=== PATIENT | male | born 1965 | race Two or more races ===

== ENCOUNTER 2023-02-12 19:55 | Inpatient (IN) | payer MEDICAID, OTHER ==
[~2023-02-12] VITALS: Ht 177.8 cm; Wt 89.2 kg
[2023-02-12] MEDS ORDERED: LORazepam 2MG/ML-1ML VIAL IV ONE ×2 (20:15→20:30)
[2023-02-12] MEDS ORDERED: SODIUM CHLORIDE 0.9% 1,000 ML IV ONE (20:30)
[2023-02-12 20:40] VITALS: PULSE 79; RESP 20; O2SAT 95
[2023-02-12 21:00] LABS: Basophils # (auto) 0 10 ^3/uL (0-0.2); Basophils % (auto) 0.6 % (0.0-2.0); Eosinophils # (auto) 0 10 ^3/uL (0-0.8); Eosinophils % (auto) 0.1 % (0.0-7.0); Hematocrit 40.7 % (41.0-53.0); Hemoglobin 13.8 g/dL (13.5-17.5); Lymphocytes # (auto) 0.1 10 ^3/uL (0.4-5.4); Lymphocytes % (auto) 1.7 % (10.0-50.0); Mean Corpuscular Hemoglobin 31.8 pg (28.0-32.0); Mean Corpuscular Volume 93.6 fL (80.0-100.0); Monocytes # (auto) 0.4 10 ^3/uL (0-1.3); Monocytes % (auto) 6.6 % (0.0-12.0); Neutrophils # (auto) 5.1 10 ^3/uL (1.6-8.6); Red Blood Cells 4.35 10^6/uL (4.5-5.90); Red Cell Distribution Width 15.6 % (11.8-14.3); White Blood Cell 5.6 10^3/uL (4.4-10.8)
[2023-02-12 21:25] LABS: Albumin 3.2 g/dL (3.4-5.0); Anion Gap 10 (5-15); Blood Alcohol < 3.0 mg/dL (<10); Blood Urea Nitrogen 12 mg/dL (7-18); Calcium 8.2 mg/dL (8.5-10.1); Carbon Dioxide 25 mmol/L (21-32); Chloride 103 mmol/L (98-107); Glucose 119 mg/dL (74-106); Potassium 3.2 mmol/L (3.5-5.1); Sodium 138 mmol/L (136-145)
[2023-02-12 21:29] LABS: Alanine Aminotransferase 323 U/L (16-61); Alkaline Phosphatase 90 U/L (45-117); Aspartate Aminotransferase 541 U/L (15-37); BUN/Creatinine Ratio 13.3 (10.0-20.0); GFR African American 112 mL/min; GFR Non-African American 93 mL/min; Total Protein 6.6 g/dL (6.4-8.2)
[2023-02-12] MEDS ORDERED: FOLIC ACID 1 MG, MULTIPLE VITAMIN 10 ML, MAGNESIUM SULF SDV 50% 8 MEQ, THIAMINE INJ 100... INJ SCH ×5 (23:50)
[2023-02-13] MEDS: LORazepam 2MG/ML-1ML VIAL IV PRN ×4 (00:08→21:40)
[2023-02-13] MEDS ORDERED: MVI in SODIUM CHLORIDE 0.9% 1,010 ML ONE (00:09)
[2023-02-13] MEDS ORDERED: THIAMINE 100mg/ml INJ (200mg/2ml VIAL) ONE (00:10)
[2023-02-13] MEDS ORDERED: THIAMINE 100mg/ml INJ (200mg/2ml VIAL) IV ONE (00:30)
[2023-02-13] MEDS ORDERED: ONDANSETRON HCL 4 MG/2 ML VIAL IV PRN (03:15)
[2023-02-13] MEDS ORDERED: TEMAZEPAM 15 MG CAP PO PRN (03:15)
[2023-02-13] MEDS ORDERED: NITROGLYCERIN 0.4 MG SL TAB SL PRN (03:15)
[2023-02-13] MEDS ORDERED: MORPHINE SULFATE INJ 2 MG/ml SYRG IV PRN (03:15)
[2023-02-13 04:24] LABS: Alcohol, Urine < 3.0 mg/dL (0-10); Amphetamine Screen, Urine NEGATIVE (NEGATIVE); Barbiturate Scree,Urine NEGATIVE (NEGATIVE); Benzodiazephine Screen, Urine NEGATIVE (NEGATIVE); Cannabinoid Screen, Urine NEGATIVE (NEGATIVE); Cocaine Screen, Urine NEGATIVE (NEGATIVE); Opiate Scree,Urine NEGATIVE (NEGATIVE); Phencyclidine Screen, Urine NEGATIVE (NEGATIVE)
[2023-02-13 06:00] VITALS: PULSE 79; RESP 17; O2SAT 93
[2023-02-13] MEDS ORDERED: POTASSIUM CHL 20 Meq TABLET PO ONE ×2 (06:15→13:45)
[2023-02-13 08:00] VITALS: PULSE 103; RESP 19; O2SAT 96
[2023-02-13] MEDS: LISINOPRIL 10 MG TAB PO SCH (08:07)
[2023-02-13] MEDS: chlordiazePOXIDE HCL 25 MG CAP PO PRN ×3 (08:07→23:56)
[2023-02-13] MEDS: SODIUM CHLORIDE 0.9% 1,000 ML IV SCH (16:00)
[2023-02-13 16:05] VITALS: BP 157/102; PULSE 89; RESP 16; TEMP 98.9; O2SAT 95
[2023-02-13 17:50] VITALS: BP 149/101; PULSE 98
[2023-02-13 20:00] VITALS: PULSE 91
[2023-02-13 21:40] VITALS: BP 154/88; PULSE 84; RESP 17; TEMP 98.1; O2SAT 99
[2023-02-14] MEDS ORDERED: FOLIC ACID 1 MG, MULTIPLE VITAMIN 10 ML, MAGNESIUM SULF SDV 50% 8 MEQ, THIAMINE INJ 100... INJ SCH ×5
[2023-02-14] MEDS: SODIUM CHLORIDE 0.9% 1,000 ML IV SCH ×2 (01:15→11:15)
[2023-02-14] MEDS: LORazepam 2MG/ML-1ML VIAL IV PRN (04:31)
[2023-02-14 05:00] VITALS: BP 152/96; PULSE 89; RESP 20; TEMP 97.6; O2SAT 98
[2023-02-14 06:59] LABS: Potassium 3.2 mmol/L (3.5-5.1)
[2023-02-14 07:13] LABS: Albumin 3.1 g/dL (3.4-5.0); BUN/Creatinine Ratio 9.3 (10.0-20.0); Bilirubin, Total 2.7 mg/dL (0.2-1.0); Calcium 8.3 mg/dL (8.5-10.1); Total Protein 6.4 g/dL (6.4-8.2)
[2023-02-14 07:30] VITALS: PULSE 91; O2SAT 97
[2023-02-14] MEDS ORDERED: POTASSIUM CHL 20 Meq TABLET PO ONE (07:30)
[2023-02-14 07:40] LABS: Basophils # (auto) 0 10 ^3/uL (0-0.2); Basophils % (auto) 0.7 % (0.0-2.0); Eosinophils # (auto) 0 10 ^3/uL (0-0.8); Eosinophils % (auto) 1.1 % (0.0-7.0); Hematocrit 40.4 % (41.0-53.0); Hemoglobin 13.6 g/dL (13.5-17.5); Lymphocytes # (auto) 0.7 10 ^3/uL (0.4-5.4); Lymphocytes % (auto) 21.7 % (10.0-50.0); Mean Corpuscular Hemoglobin 32.1 pg (28.0-32.0); Mean Corpuscular Hgb Conc. 33.8 g/dL (32.0-36.0); Monocytes # (auto) 0.5 10 ^3/uL (0-1.3); Neutrophils # (auto) 1.9 10 ^3/uL (1.6-8.6); Neutrophils % (auto) 61.5 % (37.0-80.0); Nucleated Red Blood Cells % 0.2 %; Red Blood Cells 4.25 10^6/uL (4.5-5.90); Red Cell Distribution Width 15.4 % (11.8-14.3); White Blood Cell 3.1 10^3/uL (4.4-10.8)
[2023-02-14] MEDS ORDERED: amLODIPine BESYLATE 5 MG TAB PO SCH ×2 (07:46→10:00)
[2023-02-14 09:00] VITALS: BP 157/101; PULSE 90; RESP 21; TEMP 97.8; O2SAT 97
[2023-02-14] MEDS ORDERED: AML5T PO ×3 (09:56→12:59)
[2023-02-14] MEDS ORDERED: LISI10TA34 PO (09:56)
[2023-02-14] MEDS: LISINOPRIL 10 MG TAB PO SCH (11:23)
[2023-02-14] MEDS ORDERED: hydrALAZINE HCL 20 MG/ML VL IV ONE (13:00)
[2023-02-14 14:00] VITALS: BP 126/89; PULSE 100; RESP 20; TEMP 98; O2SAT 98
[2023-02-14 18:05] VITALS: BP 128/75; PULSE 80; RESP 17; TEMP 98; O2SAT 98
[2023-02-14] MEDS: chlordiazePOXIDE HCL 25 MG CAP PO PRN (18:47)
== END 2023-02-14 18:50 | disposition home or self-care (01) | DRG 775 ==
LOC: EDBD 19:55 → ER 19:59 → TELE 02-13 03:10 → TELE-WESTW 02-13 14:00
PROVIDERS: ADMIT Internal Medicine Pulmonary Disease
DX: F10.231 Alcohol dependence with withdrawal delirium (principal); E78.5 Hyperlipidemia, unspecified; R74.01 Elevation of levels of liver transaminase levels; I10 Essential (primary) hypertension; Z82.49 Family history of ischemic heart disease and other diseases of the circulatory system
CPT/HCPCS: 36415; 80053; 80307; 80320; 85025; 93005; 96361; 96365; 96375; G0378

== ENCOUNTER 2023-06-12 14:00 | Inpatient (IN) | payer MEDICAID ==
[~2023-06-12] VITALS: Ht 177.8 cm; Wt 80.3 kg
[~2023-06-12 14:00] MED LIST: AML5T PO; LISI10TA34 PO
[2023-06-12] MEDS ORDERED: LORazepam 2MG/ML-1ML VIAL IV ONE (17:30)
[2023-06-12] MEDS ORDERED: SODIUM CHLORIDE 0.9% 1,000 ML IV ONE (17:30)
[2023-06-12 18:09] LABS: Basophils # (auto) 0 10 ^3/uL (0-0.2); Basophils % (auto) 0.1 % (0.0-2.0); Eosinophils # (auto) 0 10 ^3/uL (0-0.8); Hematocrit 47.5 % (41.0-53.0); Hemoglobin 15.9 g/dL (13.5-17.5); Lymphocytes # (auto) 0.2 10 ^3/uL (0.4-5.4); Lymphocytes % (auto) 3.4 % (10.0-50.0); Mean Corpuscular Hemoglobin 31.1 pg (28.0-32.0); Mean Corpuscular Hgb Conc. 33.5 g/dL (32.0-36.0); Mean Corpuscular Volume 92.8 fL (80.0-100.0); Monocytes # (auto) 0.9 10 ^3/uL (0-1.3); Monocytes % (auto) 14.1 % (0.0-12.0); Neutrophils # (auto) 5.5 10 ^3/uL (1.6-8.6); Neutrophils % (auto) 82.4 % (37.0-80.0); Nucleated Red Blood Cells % 0.1 %; Red Blood Cells 5.12 10^6/uL (4.5-5.90); Red Cell Distribution Width 14.5 % (11.8-14.3); White Blood Cell 6.7 10^3/uL (4.4-10.8)
[2023-06-12 18:28] LABS: Alanine Aminotransferase 279 U/L (7-40); Alkaline Phosphatase 132 U/L (46-116); Anion Gap 18 (5-15); Aspartate Aminotransferase 419 U/L (13-40); BUN/Creatinine Ratio 15.1 (10.0-20.0); Bilirubin, Total 4.4 mg/dL (0.2-1.0); Blood Alcohol < 3.0 mg/dL (<10); Blood Urea Nitrogen 16 mg/dL (9-23); Calcium 9.8 mg/dL (8.7-10.4); Carbon Dioxide 23 mmol/L (20-30); Chloride 89 mmol/L (98-107); Glucose 166 mg/dL (74-106); Potassium 4.3 mmol/L (3.5-5.1); Sodium 130 mmol/L (136-145); Total Protein 8.3 g/dL (5.7-8.2)
[2023-06-12] MEDS ORDERED: CHL10C PO (20:51)
[2023-06-12] MEDS ORDERED: hydrALAZINE HCL 20 MG/ML VL IV PRN (21:15)
[2023-06-12] MEDS ORDERED: LORazepam 2MG/ML-1ML VIAL IV PRN (21:15)
[2023-06-12] MEDS ORDERED: ONDANSETRON HCL 4 MG/2 ML VIAL IV PRN (21:15)
[2023-06-12] MEDS ORDERED: DOCUSATE SOD 100 MG CAP PO PRN (21:15)
[2023-06-12] MEDS ORDERED: IBUPROFEN 600 MG TAB PO PRN (21:15)
[2023-06-12] MEDS ORDERED: MORPHINE SULFATE INJ 2 MG/ml SYRG IV PRN (23:00)
[2023-06-12] MEDS ORDERED: NITROGLYCERIN 0.4 MG SL TAB SL PRN (23:00)
[2023-06-13] VITALS (7 sets, daily range): BP systolic 94–121; BP diastolic 44–74; PULSE 76–93; RESP 18–19; TEMP 98.3–98.5; O2SAT 97–98
[2023-06-13] MEDS: SODIUM CHLORIDE 0.9% 1,000 ML IV SCH ×2 (02:23→13:55)
[2023-06-13] MEDS ORDERED: LORazepam 0.5 MG TAB PO PRN (06:00)
[2023-06-13 06:20] LABS: Basophils # (auto) 0 10 ^3/uL (0-0.2); Basophils % (auto) 0.1 % (0.0-2.0); Eosinophils # (auto) 0 10 ^3/uL (0-0.8); Hematocrit 45.3 % (41.0-53.0); Hemoglobin 15.2 g/dL (13.5-17.5); Lymphocytes # (auto) 0.7 10 ^3/uL (0.4-5.4); Lymphocytes % (auto) 8.3 % (10.0-50.0); Mean Corpuscular Hemoglobin 31.3 pg (28.0-32.0); Mean Corpuscular Hgb Conc. 33.6 g/dL (32.0-36.0); Mean Corpuscular Volume 93.2 fL (80.0-100.0); Monocytes # (auto) 1.1 10 ^3/uL (0-1.3); Neutrophils # (auto) 6.1 10 ^3/uL (1.6-8.6); Neutrophils % (auto) 77.6 % (37.0-80.0); Nucleated Red Blood Cells % 0.2 %; Red Blood Cells 4.86 10^6/uL (4.5-5.90); Red Cell Distribution Width 14.9 % (11.8-14.3); White Blood Cell 7.9 10^3/uL (4.4-10.8)
[2023-06-13 06:32] LABS: Alanine Aminotransferase 262 U/L (7-40); Albumin 4.7 g/dL (3.2-4.8); Alkaline Phosphatase 129 U/L (46-116); Anion Gap 16 (5-15); Aspartate Aminotransferase 356 U/L (13-40); BUN/Creatinine Ratio 19.4 (10.0-20.0); Calcium 9.5 mg/dL (8.5-10.1); Carbon Dioxide 24 mmol/L (20-30); Chloride 93 mmol/L (98-107); Glucose 119 mg/dL (74-106); Potassium 3.7 mmol/L (3.5-5.1); Sodium 133 mmol/L (136-145)
[2023-06-13 06:33] LABS: Bilirubin, Total 4.1 mg/dL (0.2-1.0); Total Protein 7.8 g/dL (5.7-8.2)
[2023-06-13 06:49] LABS: Blood Urea Nitrogen 27 mg/dL (9-23)
[2023-06-13] MEDS: LORazepam 2MG/ML-1ML VIAL IV PRN ×2 (08:59→11:43)
[2023-06-13] MEDS ORDERED: FOLIC ACID 1 MG, MULTIPLE VITAMIN 10 ML, MAGNESIUM SULF SDV 50% 8 MEQ, THIAMINE INJ 100... INJ SCH ×5 (12:00)
[2023-06-13] MEDS: chlordiazePOXIDE HCL 25 MG CAP PO SCH (18:21)
[2023-06-14] MEDS: chlordiazePOXIDE HCL 25 MG CAP PO SCH ×3 (00:19→11:24)
[2023-06-14 05:00] VITALS: BP 148/93; PULSE 81; RESP 21; TEMP 98.5; O2SAT 97
[2023-06-14] MEDS: SODIUM CHLORIDE 0.9% 1,000 ML IV SCH ×2 (06:35→23:15)
[2023-06-14] MEDS: amLODIPine BESYLATE 5 MG TAB PO SCH (08:09)
[2023-06-14] MEDS: LORazepam 2MG/ML-1ML VIAL IV PRN ×2 (08:09→11:27)
[2023-06-14 08:30] VITALS: BP 131/83; PULSE 80; PULSE 90; RESP 18; RESP 20; TEMP 98.7; O2SAT 97; O2SAT 99
[2023-06-14] MEDS ORDERED: THIAMINE HCL 100 MG TAB PO ONE (11:15)
[2023-06-14 12:30] VITALS: BP 117/73; PULSE 85; RESP 18; TEMP 98.3; O2SAT 94
[2023-06-14 16:31] VITALS: BP 115/59; PULSE 80; RESP 18; TEMP 98.7; O2SAT 94
[2023-06-14] MEDS: FOLIC ACID 1 MG, MULTIPLE VITAMIN 10 ML, MAGNESIUM SULF SDV 50% 8 MEQ, THIAMINE INJ 100... INJ SCH ×5 (17:54)
[2023-06-14 20:00] VITALS: PULSE 70; PULSE 90; RESP 20; O2SAT 97
[2023-06-14 22:00] VITALS: BP 116/81; PULSE 93; RESP 18; TEMP 97.6; O2SAT 97
[2023-06-15] VITALS (7 sets, daily range): BP systolic 137–144; BP diastolic 80–89; PULSE 70–96; RESP 18–20; TEMP 97.6–98.8; O2SAT 97–98
[2023-06-15] MEDS: chlordiazePOXIDE HCL 25 MG CAP PO SCH ×4 (06:14→18:06)
[2023-06-15 06:22] LABS: Alanine Aminotransferase 249 U/L (7-40); Albumin 3.6 g/dL (3.2-4.8); Alkaline Phosphatase 101 U/L (46-116); Anion Gap 8 (5-15); Aspartate Aminotransferase 328 U/L (13-40); BUN/Creatinine Ratio 10.7 (10.0-20.0); Bilirubin, Total 1.7 mg/dL (0.2-1.0); Carbon Dioxide 24 mmol/L (20-30); Chloride 106 mmol/L (98-107); Glucose 73 mg/dL (74-106); Potassium 3.5 mmol/L (3.5-5.1); Sodium 138 mmol/L (136-145)
[2023-06-15 06:23] LABS: Total Protein 6.1 g/dL (5.7-8.2)
[2023-06-15 06:34] LABS: Blood Urea Nitrogen 8 mg/dL (9-23)
[2023-06-15 09:37] LABS: Hepatitis B Surface Antigen Negative (Negative)
[2023-06-15 09:59] LABS: Hepatitis C Antibody Negative (Negative)
[2023-06-15 10:00] LABS: Hepatitis B Core Total AB Negative (Negative)
[2023-06-15] MEDS: THIAMINE HCL 100 MG TAB PO SCH (10:10)
[2023-06-15] MEDS: amLODIPine BESYLATE 5 MG TAB PO SCH (10:25)
[2023-06-15 11:31] LABS: Hepatitis A Total Antibody Positive (Negative)
[2023-06-15 11:32] LABS: Hepatitis B Surface Antibody Negative (Negative); Hepatitis B Surface Antigen Negative (Negative); Hepatitis C Antibody Negative (Negative)
[2023-06-15] MEDS: SODIUM CHLORIDE 0.9% 1,000 ML IV SCH (15:55)
[2023-06-15] MEDS: FOLIC ACID 1 MG, MULTIPLE VITAMIN 10 ML, MAGNESIUM SULF SDV 50% 8 MEQ, THIAMINE INJ 100... INJ SCH ×5 (21:20)
[2023-06-16] MEDS: chlordiazePOXIDE HCL 25 MG CAP PO SCH ×4 (00:11→18:00)
[2023-06-16 05:00] VITALS: BP 142/91; PULSE 83; RESP 20; TEMP 98.3; O2SAT 99
[2023-06-16] MEDS ORDERED: ACETAMINOPHEN 325 MG TAB PO ONE ×2 (06:15→06:29)
[2023-06-16 08:00] VITALS: PULSE 119; PULSE 77; RESP 19; O2SAT 96
[2023-06-16 09:00] VITALS: BP 119/71; PULSE 77; RESP 19; TEMP 98.3; O2SAT 96
[2023-06-16] MEDS: SODIUM CHLORIDE 0.9% 1,000 ML IV SCH (11:10)
[2023-06-16] MEDS: amLODIPine BESYLATE 5 MG TAB PO SCH (11:10)
[2023-06-16] MEDS: THIAMINE HCL 100 MG TAB PO SCH (11:14)
[2023-06-16] MEDS ORDERED: THIA100T10 PO (14:31)
[2023-06-16 15:16] VITALS: BP 133/85; PULSE 74; RESP 18; TEMP 98.7; O2SAT 95
[2023-06-16 15:58] VITALS: BP 133/85; PULSE 74; RESP 18; TEMP 37.1; O2SAT 95
[2023-06-16 16:42] VITALS: BP 139/89; PULSE 71; RESP 16; TEMP 97.8; O2SAT 93
[2023-06-16] MEDS: FOLIC ACID 1 MG, MULTIPLE VITAMIN 10 ML, MAGNESIUM SULF SDV 50% 8 MEQ, THIAMINE INJ 100... INJ SCH ×5 (18:00)
== END 2023-06-16 18:30 | disposition home or self-care (01) | DRG 775 ==
LOC: ER 14:00 → EDBD 14:00 → TELE 22:48 → TELE-WESTW 06-13 15:12
PROVIDERS: ADMIT Nurse Practitioner Family; ATTEND Nurse Practitioner Acute Care
DX: F10.231 Alcohol dependence with withdrawal delirium (principal); E87.1 Hypo-osmolality and hyponatremia; E78.5 Hyperlipidemia, unspecified; I10 Essential (primary) hypertension; R73.9 Hyperglycemia, unspecified; Z82.49 Family history of ischemic heart disease and other diseases of the circulatory system
CPT/HCPCS: 36415; 76705; 80053; 80320; 82140; 82728; 85025; 86704; 86706; 86708; 86803; 87340; G0378; J2405

== ENCOUNTER 2023-08-11 07:28 | Inpatient (IN) | payer MEDICAID ==
[~2023-08-11] VITALS: Ht 177.8 cm; Wt 89.0 kg
[~2023-08-11 07:28] MED LIST changes: +CHL10C PO; +THIA100T10 PO
[2023-08-11] MEDS: SODIUM CHLORIDE 0.9% 1,000 ML IV ONE (08:01)
[2023-08-11 08:15] LABS: Basophils # (auto) 0 10 ^3/uL (0-0.2); Basophils % (auto) 0.6 % (0.0-2.0); Eosinophils # (auto) 0 10 ^3/uL (0-0.8); Eosinophils % (auto) 0.3 % (0.0-7.0); Hematocrit 39.2 % (41.0-53.0); Hemoglobin 13.3 g/dL (13.5-17.5); Lymphocytes # (auto) 1.1 10 ^3/uL (0.4-5.4); Mean Corpuscular Hemoglobin 31.5 pg (28.0-32.0); Mean Corpuscular Hgb Conc. 33.8 g/dL (32.0-36.0); Monocytes # (auto) 0.9 10 ^3/uL (0-1.3); Monocytes % (auto) 11.7 % (0.0-12.0); Neutrophils # (auto) 5.8 10 ^3/uL (1.6-8.6); Neutrophils % (auto) 73.4 % (37.0-80.0); Red Blood Cells 4.21 10^6/uL (4.5-5.90); White Blood Cell 7.9 10^3/uL (4.4-10.8)
[2023-08-11 08:27] LABS: Alanine Aminotransferase 93 U/L (7-40); Albumin 4.4 g/dL (3.2-4.8); Alkaline Phosphatase 90 U/L (46-116); Anion Gap 11 (5-15); Aspartate Aminotransferase 172 U/L (13-40); BUN/Creatinine Ratio 14.1 (10.0-20.0); Blood Alcohol < 3.0 mg/dL (<10); Blood Urea Nitrogen 29 mg/dL (9-23); Calcium 10.4 mg/dL (8.5-10.1); Carbon Dioxide 24 mmol/L (20-30); Chloride 103 mmol/L (98-107); Glucose 108 mg/dL (74-106); INR 1.06 (0.9-1.15); Potassium 3.6 mmol/L (3.5-5.1); Prothrombin Time 11.1 sec (9.3-11.8); Sodium 138 mmol/L (136-145)
[2023-08-11 08:28] LABS: Bilirubin, Total 2.2 mg/dL (0.2-1.0)
[2023-08-11 08:40] LABS: Magnesium 1.9 mg/dL (1.6-2.6)
[2023-08-11 08:45] LABS: Salicylate < 3.0 mg/dL (2.8-20.0)
[2023-08-11 09:01] LABS: Acetaminophen < 2.0 UG/ML (10.0-20.0)
[2023-08-11 11:40] LABS: Amphetamine Screen, Urine Neg (NEGATIVE); Barbiturate Scree,Urine Neg (NEGATIVE); Benzodiazephine Screen, Urine Neg (NEGATIVE); Cannabinoid Screen, Urine Neg (NEGATIVE); Cocaine Screen, Urine Neg (NEGATIVE); Opiate Scree,Urine Neg (NEGATIVE); Phencyclidine Screen, Urine Neg (NEGATIVE)
[2023-08-11] MEDS ORDERED: ONDANSETRON HCL 4 MG/2 ML VIAL IV PRN (12:30)
[2023-08-11] MEDS ORDERED: MORPHINE SULFATE INJ 2 MG/ml SYRG IV PRN (12:30)
[2023-08-11] MEDS ORDERED: NITROGLYCERIN 0.4 MG SL TAB SL PRN (12:30)
[2023-08-11] MEDS ORDERED: LORazepam 2MG/ML-1ML VIAL IV PRN (12:30)
[2023-08-11] MEDS: SODIUM CHLORIDE 0.9% 2,000 ML IV ONE (14:42)
[2023-08-11] MEDS: SODIUM CHLORIDE 0.9% 1,000 ML IV SCH (14:42)
[2023-08-11] MEDS: LORazepam 2MG/ML-1ML VIAL IV ONE (14:49)
[2023-08-11] MEDS: LACTULOSE 20Gm/30ML SOLN PO ONE (14:49)
[2023-08-11 19:30] VITALS: PULSE 86; RESP 20; O2SAT 95
[2023-08-11] MEDS: FOLIC ACID 1 MG, MAGNESIUM SULF SDV 50% 8 MEQ, MULTIPLE VITAMIN 10 ML, THIAMINE INJ 100... INJ SCH (19:31)
[2023-08-11 20:24] LABS: Protein, Urine 32.3 mg/dL (0.0-11.9)
[2023-08-11 20:27] LABS: Creatinine, Urine 156.91 mg/dL (30.0-125.0)
[2023-08-11 20:53] LABS: Urine Bacteria NONE SEEN /hpf (None Seen); Urine Blood Negative /uL (Negative); Urine Clarity Clear (Clear); Urine Color Yellow (Yellow); Urine Hyaline Cast FEW /lpf (0 - 2); Urine Protein, UAD TRACE (Negative); Urine Specific Gravity 1.017 (1.001-1.035); Urine Urobilinogen Normal (Negative); Urine WBC 2 /hpf (0 - 3); Urine pH 5.5 (5.0-8.0)
[2023-08-12 06:10] LABS: Basophils # (auto) 0 10 ^3/uL (0-0.2); Basophils % (auto) 0.6 % (0.0-2.0); Eosinophils # (auto) 0.1 10 ^3/uL (0-0.8); Eosinophils % (auto) 1.4 % (0.0-7.0); Hematocrit 34.9 % (41.0-53.0); Hemoglobin 11.8 g/dL (13.5-17.5); Lymphocytes # (auto) 1.3 10 ^3/uL (0.4-5.4); Lymphocytes % (auto) 24.2 % (10.0-50.0); Mean Corpuscular Hemoglobin 31.1 pg (28.0-32.0); Mean Corpuscular Hgb Conc. 33.7 g/dL (32.0-36.0); Mean Corpuscular Volume 92.3 fL (80.0-100.0); Monocytes # (auto) 0.8 10 ^3/uL (0-1.3); Monocytes % (auto) 15.2 % (0.0-12.0); Neutrophils # (auto) 3.1 10 ^3/uL (1.6-8.6); Neutrophils % (auto) 58.6 % (37.0-80.0); Nucleated Red Blood Cells % 0.1 %; Red Blood Cells 3.78 10^6/uL (4.5-5.90); Red Cell Distribution Width 14.1 % (11.8-14.3); White Blood Cell 5.3 10^3/uL (4.4-10.8)
[2023-08-12 06:15] LABS: Alanine Aminotransferase 66 U/L (7-40); Alkaline Phosphatase 65 U/L (46-116); Anion Gap 9 (5-15); BUN/Creatinine Ratio 12.3 (10.0-20.0); Blood Urea Nitrogen 13 mg/dL (9-23); Calcium 8.4 mg/dL (8.7-10.4); Carbon Dioxide 22 mmol/L (20-30); Chloride 111 mmol/L (98-107); Glucose 96 mg/dL (74-106); Potassium 3.2 mmol/L (3.5-5.1); Sodium 142 mmol/L (136-145); Uric Acid 9.7 mg/dL (3.7-9.2)
[2023-08-12 06:16] LABS: Albumin 3.5 g/dL (3.2-4.8); Aspartate Aminotransferase 105 U/L (13-40)
[2023-08-12 06:17] LABS: Bilirubin, Total 1.6 mg/dL (0.2-1.0); Total Protein 5.8 g/dL (5.7-8.2)
[2023-08-12 07:40] VITALS: PULSE 65; RESP 14; O2SAT 97
[2023-08-12] MEDS: HYDROcodone-ACET 5/325MG TAB PO PRN (10:41)
[2023-08-12] MEDS: ENOXAPARIN SOD 40 MG/0.4 ML SYRINGE SC SCH (10:43)
[2023-08-12] MEDS: LACTULOSE 20Gm/30ML SOLN PO SCH (10:43)
[2023-08-12 15:11] VITALS: PULSE 77; RESP 20; O2SAT 97
[2023-08-12 16:59] VITALS: BP 127/75; PULSE 77; RESP 20; TEMP 98.5; O2SAT 97
[2023-08-12 20:00] VITALS: PULSE 100
[2023-08-12 22:00] VITALS: BP 139/79; PULSE 79; RESP 17; TEMP 97.9; O2SAT 97
[2023-08-13] VITALS (7 sets, daily range): BP systolic 135–168; BP diastolic 75–98; PULSE 75–95; RESP 17–19; TEMP 98–98.6; O2SAT 96–98
[2023-08-13] MEDS: hydrALAZINE HCL 20 MG/ML VL IV PRN (18:24)
[2023-08-14] VITALS (8 sets, daily range): BP systolic 148–166; BP diastolic 89–92; PULSE 71–98; RESP 17–18; TEMP 95.3–98.8; O2SAT 96–99
[2023-08-14 08:00] LABS: Alanine Aminotransferase 75 U/L (7-40); Albumin 3.7 g/dL (3.2-4.8); Alkaline Phosphatase 72 U/L (46-116); Anion Gap 6 (5-15); Aspartate Aminotransferase 92 U/L (13-40); BUN/Creatinine Ratio 9.5 (10.0-20.0); Blood Urea Nitrogen 9 mg/dL (9-23); Calcium 8.8 mg/dL (8.5-10.1); Carbon Dioxide 25 mmol/L (20-30); Chloride 110 mmol/L (98-107); Glucose 95 mg/dL (74-106); Potassium 3.8 mmol/L (3.5-5.1); Sodium 141 mmol/L (136-145)
[2023-08-14 11:57] LABS: Free T4 (Free Thyroxine) 1.26 ng/dL (0.89-1.76)
[2023-08-14 11:59] LABS: Folate (Folic Acid) > 24.00 ng/mL (>5.38)
[2023-08-14] MEDS ORDERED: chlordiazePOXIDE HCL 5 MG CAP PO PRN (13:45)
[2023-08-14] MEDS: FOLIC ACID 1 MG TAB PO ONE (16:01)
[2023-08-14] MEDS: MULTIPLE VITAMIN TAB PO ONE (16:01)
[2023-08-14] MEDS: LISINOPRIL 20 MG TAB PO ONE (16:04)
[2023-08-14] MEDS: THIAMINE HCL 100 MG TAB PO ONE (16:05)
[2023-08-14] MEDS ORDERED: LORazepam 2MG/ML-1ML VIAL IV PRN (23:15)
[2023-08-15] VITALS (7 sets, daily range): BP systolic 123–162; BP diastolic 81–104; PULSE 60–86; RESP 17–20; TEMP 97.7–98.5; O2SAT 94–98
[2023-08-15 06:35] LABS: Alanine Aminotransferase 55 U/L (7-40); Albumin 3.6 g/dL (3.2-4.8); Anion Gap 6 (5-15); Aspartate Aminotransferase 58 U/L (13-40); BUN/Creatinine Ratio 10.1 (10.0-20.0); Blood Urea Nitrogen 10 mg/dL (9-23); Calcium 8.8 mg/dL (8.7-10.4); Carbon Dioxide 26 mmol/L (20-30); Chloride 109 mmol/L (98-107); Glucose 102 mg/dL (74-106); Magnesium 1.9 mg/dL (1.6-2.6); Potassium 3.7 mmol/L (3.5-5.1); Sodium 141 mmol/L (136-145)
[2023-08-15 06:36] LABS: Bilirubin, Total 0.7 mg/dL (0.2-1.0); Total Protein 6.1 g/dL (5.7-8.2)
[2023-08-15 06:57] LABS: Alkaline Phosphatase 68 U/L (46-116)
[2023-08-15 08:06] LABS: Immunoglobulin A 399 mg/dL (90-386); Immunoglobulin G, Serum 885 mg/dL (603-1613); Immunoglobulin M 197 mg/dL (20-172)
[2023-08-15] MEDS: MULTIPLE VITAMIN TAB PO SCH (09:44)
[2023-08-15] MEDS: THIAMINE HCL 100 MG TAB PO SCH (09:45)
[2023-08-15] MEDS: LISINOPRIL 20 MG TAB PO SCH (09:45)
[2023-08-15] MEDS: FOLIC ACID 1 MG TAB PO SCH (09:45)
[2023-08-15 10:06] LABS: Alpha-1-Globulin 0.2 g/dL (0.0-0.4); Alpha-2-Globulin 0.6 g/dL (0.4-1.0); Globulin Total 2.9 g/dL (2.2-3.9); Protein Total Serum 5.9 g/dL (6.0-8.5)
[2023-08-15] MEDS: amLODIPine BESYLATE 5 MG TAB PO ONE (15:04)
[2023-08-16] VITALS (7 sets, daily range): BP systolic 123–137; BP diastolic 59–82; PULSE 74–78; RESP 16–20; TEMP 98–98.6; O2SAT 95–98
[2023-08-16] MEDS: amLODIPine BESYLATE 5 MG TAB PO SCH (09:21)
[2023-08-17 05:00] VITALS: BP 109/68; PULSE 79; RESP 18; TEMP 98; O2SAT 97
[2023-08-17 08:35] VITALS: BP 134/84; PULSE 89; RESP 18; TEMP 98.4; O2SAT 98
[2023-08-17] MEDS ORDERED: RISP2TAB62 PO (09:48)
[2023-08-17 11:26] VITALS: BP 134/84; RESP 18; TEMP 36.9
[2023-08-17 12:40] VITALS: BP 131/86; PULSE 80; RESP 20; TEMP 98.3; O2SAT 98
== END 2023-08-17 15:20 | disposition home or self-care (01) | DRG 469 ==
LOC: EDSEX 07:28 → EDBD 07:28 → ER 07:28 → TELE 12:29 → TELE-CENTR 08-12 15:34 → CENTRAL 08-17 01:44
PROVIDERS: ADMIT Nurse Practitioner Family; ATTEND Internal Medicine Geriatric Medicine
DX: N17.9 Acute kidney failure, unspecified (principal); E72.20 Disorder of urea cycle metabolism, unspecified; F10.239 Alcohol dependence with withdrawal, unspecified; R41.3 Other amnesia; I10 Essential (primary) hypertension; R00.0 Tachycardia, unspecified; R74.01 Elevation of levels of liver transaminase levels; E87.6 Hypokalemia; E78.5 Hyperlipidemia, unspecified; D64.9 Anemia, unspecified; Z79.899 Other long term (current) drug therapy; R44.3 Hallucinations, unspecified; R19.7 Diarrhea, unspecified; F17.200 Nicotine dependence, unspecified, uncomplicated; G47.00 Insomnia, unspecified; Z56.0 Unemployment, unspecified; Z82.49 Family history of ischemic heart disease and other diseases of the circulatory system
CPT/HCPCS: 36415; 70450; 70551; 71045; 71046; 76700; 80053; 80307; 80320; 80329; 81001; 82140; 82570; 82607; 82746; 82784; 82962; 83735; 84155; 84156; 84165; 84300; 84439; 84443; 84484; 84550; 85025; 85049; 85610; 86334; 93005; 95819; 99291; G0378

== ENCOUNTER 2023-09-12 20:42 | Inpatient (IN) | payer MEDICAID ==
[~2023-09-12] VITALS: Ht 175.3 cm; Wt 84.0 kg
[~2023-09-12 20:42] MED LIST changes: +RISP2TAB62 PO
[2023-09-12] MEDS: FOLIC ACID 1 MG, MAGNESIUM SULF SDV 50% 8 MEQ, MULTIPLE VITAMIN 10 ML, THIAMINE INJ 100... INJ SCH (21:36)
[2023-09-12 22:18] LABS: Basophils # (auto) 0.1 10 ^3/uL (0-0.2); Eosinophils # (auto) 0 10 ^3/uL (0-0.8); Hemoglobin 15.7 g/dL (13.5-17.5); Lymphocytes # (auto) 1.9 10 ^3/uL (0.4-5.4); Lymphocytes % (auto) 23.4 % (10.0-50.0); Mean Corpuscular Hemoglobin 30.4 pg (28.0-32.0); Mean Corpuscular Hgb Conc. 32.7 g/dL (32.0-36.0); Mean Corpuscular Volume 92.9 fL (80.0-100.0); Monocytes # (auto) 0.5 10 ^3/uL (0-1.3); Monocytes % (auto) 5.8 % (0.0-12.0); Neutrophils # (auto) 5.7 10 ^3/uL (1.6-8.6); Neutrophils % (auto) 69.8 % (37.0-80.0); Nucleated Red Blood Cells % 0.1 %; Red Blood Cells 5.16 10^6/uL (4.5-5.90); Red Cell Distribution Width 14.3 % (11.8-14.3); White Blood Cell 8.2 10^3/uL (4.4-10.8)
[2023-09-12 22:35] LABS: Alanine Aminotransferase 42 U/L (7-40); Albumin 4.3 g/dL (3.2-4.8); Alkaline Phosphatase 72 U/L (46-116); Anion Gap 16 (5-15); Aspartate Aminotransferase 90 U/L (13-40); BUN/Creatinine Ratio 7.6 (10.0-20.0); Blood Urea Nitrogen 8 mg/dL (9-23); Calcium 9.2 mg/dL (8.5-10.1); Carbon Dioxide 24 mmol/L (20-30); Chloride 104 mmol/L (98-107); Glucose 99 mg/dL (74-106); Potassium 4.1 mmol/L (3.5-5.1); Sodium 144 mmol/L (136-145)
[2023-09-12 22:36] LABS: Bilirubin, Total 0.7 mg/dL (0.2-1.0); Total Protein 7.2 g/dL (5.7-8.2)
[2023-09-12 22:43] LABS: Blood Alcohol 381.4 mg/dL (<10)
[2023-09-13] MEDS: ACETAMINOPHEN 500 MG TAB PO ONE (02:54)
[2023-09-13 03:13] VITALS: PULSE 100; RESP 18; O2SAT 95
[2023-09-13] MEDS: LORazepam 2MG/ML-1ML VIAL IV ONE (05:32)
[2023-09-13 10:13] VITALS: O2SAT 92
[2023-09-13] MEDS: chlordiazePOXIDE HCL 25 MG CAP PO PRN (10:42)
[2023-09-13] MEDS: LISINOPRIL 5 MG TAB PO SCH (10:43)
[2023-09-13 11:35] LABS: Amphetamine Screen, Urine Neg (NEGATIVE); Barbiturate Scree,Urine Neg (NEGATIVE); Benzodiazephine Screen, Urine Neg (NEGATIVE); Cannabinoid Screen, Urine Neg (NEGATIVE); Cocaine Screen, Urine Neg (NEGATIVE); Opiate Scree,Urine Neg (NEGATIVE); Phencyclidine Screen, Urine Neg (NEGATIVE)
[2023-09-13 11:43] LABS: Urine Bacteria NONE SEEN /hpf (None Seen); Urine Blood Negative /uL (Negative); Urine Clarity Clear (Clear); Urine Color Yellow (Yellow); Urine Hyaline Cast FEW /lpf (0 - 2); Urine Protein, UAD Negative (Negative); Urine Specific Gravity 1.018 (1.001-1.035); Urine Urobilinogen Normal (Negative); Urine WBC <1 /hpf (0 - 3); Urine pH 5.5 (5.0-8.0)
[2023-09-13] MEDS: SODIUM CHLORIDE 0.9% 1,000 ML IV ONE (13:33)
[2023-09-13 16:31] VITALS: PULSE 86; RESP 16; O2SAT 96
[2023-09-13] MEDS ORDERED: ATOR10TA52 PO (16:54)
[2023-09-13] MEDS ORDERED: LISI20TA56 PO (16:54)
[2023-09-13] MEDS ORDERED: RISP1TAB63 PO (16:55)
[2023-09-13] MEDS: FOLIC ACID 1 MG, MAGNESIUM SULF SDV 50% 8 MEQ, MULTIPLE VITAMIN 10 ML, THIAMINE INJ 100... INJ SCH (19:17)
[2023-09-13 20:00] VITALS: BP 143/79; PULSE 90; RESP 18; TEMP 98.7; O2SAT 96
[2023-09-13 20:31] VITALS: BP 143/79; PULSE 90; RESP 18; TEMP 98.7; O2SAT 96
[2023-09-13] MEDS: ATORVASTATIN 20 MG TAB PO SCH (21:36)
[2023-09-13] MEDS: ONDANSETRON HCL 4 MG/2 ML VIAL IV PRN (21:37)
[2023-09-14] VITALS (7 sets, daily range): BP systolic 134–154; BP diastolic 82–96; PULSE 69–91; RESP 15–21; TEMP 97.9–98.9; O2SAT 93–96
[2023-09-14 06:31] LABS: Chloride 106 mmol/L (98-107); Potassium 3.6 mmol/L (3.5-5.1); Sodium 140 mmol/L (136-145)
[2023-09-14 06:32] LABS: Anion Gap 6 (5-15); Carbon Dioxide 28 mmol/L (20-30)
[2023-09-14 06:33] LABS: Calcium 8.7 mg/dL (8.5-10.1)
[2023-09-14 06:37] LABS: Blood Urea Nitrogen 11 mg/dL (9-23); Glucose 95 mg/dL (74-106)
[2023-09-14] MEDS ORDERED: LORazepam 2MG/ML-1ML VIAL IV PRN (11:00)
[2023-09-14] MEDS ORDERED: hydrALAZINE HCL 20 MG/ML VL IV PRN (11:00)
[2023-09-14] MEDS: THIAMINE HCL 100 MG TAB PO SCH (11:20)
[2023-09-14] MEDS ORDERED: RISP2TAB62 PO (15:22)
[2023-09-14] MEDS ORDERED: THIA100T10 PO (15:24)
[2023-09-14] MEDS: chlordiazePOXIDE HCL 25 MG CAP PO SCH (16:23)
[2023-09-14] MEDS: risperiDONE 1 MG TAB PO SCH (22:13)
[2023-09-14] MEDS: ACETAMINOPHEN 325 MG TAB PO ONE (23:10)
[2023-09-15] VITALS (8 sets, daily range): BP systolic 117–151; BP diastolic 70–92; PULSE 80–93; RESP 16–21; TEMP 36.8; O2SAT 94–97
[2023-09-15 06:56] LABS: Basophils # (auto) 0 10 ^3/uL (0-0.2); Basophils % (auto) 0.9 % (0.0-2.0); Eosinophils # (auto) 0.1 10 ^3/uL (0-0.8); Eosinophils % (auto) 2.8 % (0.0-7.0); Hemoglobin 13.5 g/dL (13.5-17.5); Lymphocytes # (auto) 1.3 10 ^3/uL (0.4-5.4); Lymphocytes % (auto) 24.8 % (10.0-50.0); Mean Corpuscular Hemoglobin 30.9 pg (28.0-32.0); Mean Corpuscular Hgb Conc. 33.8 g/dL (32.0-36.0); Mean Corpuscular Volume 91.4 fL (80.0-100.0); Monocytes # (auto) 0.7 10 ^3/uL (0-1.3); Monocytes % (auto) 13.1 % (0.0-12.0); Neutrophils % (auto) 58.4 % (37.0-80.0); Nucleated Red Blood Cells % 0.1 %; Red Blood Cells 4.37 10^6/uL (4.5-5.90); Red Cell Distribution Width 13.7 % (11.8-14.3); White Blood Cell 5.1 10^3/uL (4.4-10.8)
[2023-09-15 07:10] LABS: Chloride 106 mmol/L (98-107); Potassium 3.6 mmol/L (3.5-5.1); Sodium 141 mmol/L (136-145)
[2023-09-15 07:11] LABS: Anion Gap 6 (5-15); Calcium 9.1 mg/dL (8.5-10.1); Carbon Dioxide 29 mmol/L (20-30)
[2023-09-15 07:16] LABS: Blood Urea Nitrogen 12 mg/dL (9-23); Glucose 93 mg/dL (74-106)
[2023-09-15] MEDS ORDERED: LISINOPRIL 5 MG TAB PO SCH (10:00)
[2023-09-15] MEDS: MULTIPLE VITAMIN TAB PO SCH (10:47)
[2023-09-15] MEDS: LISINOPRIL 20 MG TAB PO SCH (10:48)
[2023-09-16] VITALS (9 sets, daily range): BP systolic 117–141; BP diastolic 77–85; PULSE 78–109; RESP 16–20; TEMP 36.8; O2SAT 94–98
[2023-09-16] MEDS ORDERED: CHL10C PO (11:48)
[2023-09-17 01:00] VITALS: BP 131/88; PULSE 91; RESP 18; TEMP 97.6; O2SAT 96
[2023-09-17 05:00] VITALS: BP 102/80; PULSE 103; RESP 18; TEMP 97.1; O2SAT 96
[2023-09-17 08:00] VITALS: PULSE 76; RESP 18
[2023-09-17 08:55] VITALS: BP 129/89; PULSE 76; RESP 18; TEMP 97.8; O2SAT 96
[2023-09-17 10:23] VITALS: BP 129/89; PULSE 76; RESP 18; TEMP 36.6; O2SAT 96
[2023-09-17 12:55] VITALS: BP 110/76; PULSE 104; RESP 18; TEMP 98; O2SAT 96
== END 2023-09-17 14:07 | disposition home or self-care (01) | DRG 384 ==
LOC: ER 20:42 → EDBD 20:42 → OVERFLOW 09-13 05:53 → CENTRAL 09-13 05:53 → OVERFLOW 09-13 08:30 → CENTRAL 09-13 16:28
PROVIDERS: ADMIT Nurse Practitioner; ATTEND Nurse Practitioner Acute Care
DX: S01.81XA Laceration without foreign body of other part of head, initial encounter (principal); G92.8 Other toxic encephalopathy; E78.5 Hyperlipidemia, unspecified; I10 Essential (primary) hypertension; F10.129 Alcohol abuse with intoxication, unspecified; Y90.9 Presence of alcohol in blood, level not specified; W18.39XA Other fall on same level, initial encounter; F10.139 Alcohol abuse with withdrawal, unspecified; Z79.899 Other long term (current) drug therapy; Y93.89 Activity, other specified; Y92.89 Other specified places as the place of occurrence of the external cause; Y99.8 Other external cause status; Z82.49 Family history of ischemic heart disease and other diseases of the circulatory system
CPT/HCPCS: 36415; 70450; 71045; 72125; 80048; 80053; 80307; 80320; 81001; 83735; 84484; 85025; G0378; J2405